=== PATIENT | female | born 1970 | race Caucasian/White ===

== ENCOUNTER 2024-02-25 16:07 | Outpatient (CLI) | payer BC, SELFPAY ==
[2024-02-25 23:40] LABS: Chlamydia DNA Amplified* NOT DETECTED (No Detected); GC DNA Amplified* NOT DETECTED (No Detected)
== END 2024-02-25 16:08 | disposition home or self-care (01) ==
LOC: LKVREF 16:07
PROVIDERS: PCP Physician Assistant Medical; Visit Provider Physician Assistant Medical
DX: Z11.3 Encounter for screening for infections with a predominantly sexual mode of transmission (principal)
CPT/HCPCS: 87491; 87591

== ENCOUNTER 2024-04-20 09:50 | Outpatient (CLI) | payer BC, SELFPAY ==
--- NOTE | 2024-04-20 11:49 | W.ANESCHARGE ---
Anesthesia Charges Start Date/Time Anesthesia Start Date: 04/20/24 Anesthesia Start Time: 10:45 Stop Date/Time Anesthesia Stop Date: 04/20/24 Anesthesia Stop Time: 11:45
--- NOTE | 2024-04-20 11:49 | W.ANESCHARGE ---
Anesthesia Charges Start Date/Time Anesthesia Start Date: 04/20/24 Anesthesia Start Time: 10:45 Stop Date/Time Anesthesia Stop Date: 04/20/24 Anesthesia Stop Time: 11:45
== END 2024-04-20 09:51 | disposition home or self-care (01) ==
LOC: OP CLINIC 09:50
PROVIDERS: PCP Physician Assistant Medical; Visit Provider Surgery
DX: Z12.11 Encounter for screening for malignant neoplasm of colon (principal); K63.5 Polyp of colon; R19.8 Other specified symptoms and signs involving the digestive system and abdomen
CPT/HCPCS: 00813; 43239; 45385; 88305; J2704; J3490

== ENCOUNTER 2024-05-04 12:45 | Outpatient (CLI) | payer BC, SELFPAY ==
--- NOTE | 2024-05-04 13:00 | CRLHL7_ITS ---
For Patients: As a result of the Cures Act, medical imaging exams and procedure reports are released immediately into your electronic medical record. You may view this report before your referring provider. If you have questions, please contact your health care provider. BILATERAL SCREENING MAMMOGRAM WITH COMPUTER-AIDED DETECTION AND TOMOSYNTHESIS TECHNIQUE: CC and MLO views were obtained. These mammographic images have been obtained using full-field digital technique. These mammographic images were interpreted with the benefit of computer-aided detection. Breast Tomosynthesis was used in this interpretation. COMPARISON FILM: 06/06/20, 08/20/18. FINDINGS: The breasts are heterogeneously dense, which may obscure small masses IMPRESSION: There is no radiographic evidence for malignancy. ASSESSMENT: BI-RADS Category 2: Benign RECOMMENDATION: Routine screening mammogram in 1 year. A lay language report of this examination will be provided to the patient. Zay Harry M.D. Diagnostic Radiologist [email or web address] Transcribed: 4:08 [email or web address] by: Zay Harry MD @ 05/05/2024 8:54:00 AM (Electronically Signed)
== END 2024-05-04 12:46 | disposition home or self-care (01) ==
PROVIDERS: PCP Physician Assistant Medical; Visit Provider Physician Assistant Medical
DX: Z12.31 Encounter for screening mammogram for malignant neoplasm of breast (principal); R92.2 Inconclusive mammogram
CPT/HCPCS: 77063; 77067

== ENCOUNTER 2024-09-30 11:50 | Outpatient (CLI) | payer BC, SELFPAY | END 2024-09-30 11:51 | disposition home or self-care (01) | PROVIDERS: PCP Physician Assistant Medical; Visit Provider Physician Assistant Medical | DX: E03.9 Hypothyroidism, unspecified (principal); Z13.228 Encounter for screening for other metabolic disorders; Z13.220 Encounter for screening for lipoid disorders; Z11.59 Encounter for screening for other viral diseases; Z11.4 Encounter for screening for human immunodeficiency virus [HIV] | CPT/HCPCS: 80048; 80061; 84439; 84443; 86703; 86803 ==

== ENCOUNTER 2025-04-21 09:17 | Outpatient (CLI) | payer BC, SELFPAY | END 2025-04-21 09:18 | disposition home or self-care (01) | LOC: NFLDREF 04-26 14:10 | PROVIDERS: PCP Physician Assistant Medical; Referring Provider Physician Assistant Medical; Visit Provider Physician Assistant Medical | DX: E03.9 Hypothyroidism, unspecified (principal); E66.811 Obesity, class 1 | CPT/HCPCS: 80053; 84439; 84443 ==

== ENCOUNTER 2025-06-08 07:28 | Outpatient (CLI) | payer BC, SELFPAY ==
--- NOTE | 2025-06-08 07:45 | CRLHL7_ITS ---
For Patients: As a result of the Century Cures Act, medical imaging exams and procedure reports are released immediately into your electronic medical record. You may view this report before your referring provider. If you have questions, please contact your health care provider. INDICATION: BILATERAL SCREENING MAMMOGRAM, ASYMPTOMATIC 55 Y/O FEMALE COMPARISON: 04/14/2024, 08/20/2018, 08/11/2018 TECHNIQUE: Digital mammogram in CC and MLO projections including computer-aided detection (CAD) and tomosynthesis. BREAST COMPOSITION: The breasts are heterogeneously dense, which may obscure small masses. FINDINGS: No suspicious findings. ASSESSMENT: BI-RADS 2 Benign RECOMMENDATION: Annual screening mammogram. A lay language report of this examination will be provided to the patient. Dictated by: Zay Harry MD @ 06/08/2025 08:41:42 (Electronically Signed)
== END 2025-06-08 07:29 | disposition home or self-care (01) ==
LOC: MAMMO 07:29
PROVIDERS: PCP Physician Assistant Medical; Visit Provider Physician Assistant Medical
DX: Z12.31 Encounter for screening mammogram for malignant neoplasm of breast (principal); R92.333 Mammographic heterogeneous density, bilateral breasts
CPT/HCPCS: 77063; 77067

== ENCOUNTER 2025-07-26 16:04 | Outpatient (CLI) | payer BC, SELFPAY | END 2025-07-26 16:05 | disposition home or self-care (01) | LOC: NFLDREF 07-30 18:10 | PROVIDERS: PCP Physician Assistant Medical; Referring Provider Physician Assistant Medical; Visit Provider Physician Assistant Medical | DX: E03.9 Hypothyroidism, unspecified (principal) | CPT/HCPCS: 80076; 84443 ==